=== PATIENT | male | born 1980 | race Caucasian/White ===

== ENCOUNTER → 2020-07-15 | Outpatient (CLI) | payer OTHER ==
[~2020-07-15] MED LIST: IOPAMIDOL 370 MG/ML 200 ML INFUS..BTL INJ ONE; SODIUM CHLORIDE 0.9% 50ML 50 ML ONE
--- NOTE | 2020-07-15 18:07 | Diagnostic Imaging Report ---
EXAM: CT Chest WITH contrast 07/15/2020 5:10 PM INDICATION: CONTUSION FRONT WALL THORAX COMPARISON: None TECHNIQUE: Chest was scanned utilizing a multidetector helical scanner from the lung apex through the level of the adrenal glands with administration of IV contrast. Coronal and sagittal reformations were obtained. Routine protocol was performed. IV CONTRAST: 100 mL of Omnipaque 300 COMPLICATIONS: None RADIATION DOSE: Total DLP: 594.13 mGy*cm Estimated effective dose: (DLP x 0.014 x size factor) mSv CTDIvol has been reviewed. It is below the limits set by the Radiation Protocol Committee (RPC). Dose modulation, iterative reconstruction, and/or weight based adjustment of the mA/kV was utilized to reduce the radiation dose to as low as reasonably achievable. FINDINGS: LINES/ TUBES: None. LUNGS AND AIRWAYS: The lungs are unremarkable. No evidence of pulmonary contusion. Airways are normal. PLEURA: The pleural spaces are clear. Vascular: The pulmonary arteries have normal enhancement with no filling defects. The pulmonary trunk has normal caliber measuring 2.9 cm. The ascending and descending colon have normal enhancement and caliber measuring 3.5 cm and 2.4 cm, respectively. HEART AND MEDIASTINUM: The thyroid gland is normal. No mediastinal, hilar or axillary lymphadenopathy. The heart is normal in size. There is no pericardial effusion. UPPER ABDOMEN: Subcentimeter hypodense lesion in the right hepatic dome (series 2 image 94) is too small to characterize by CT but most likely represents a small cyst. The remainder of the imaged upper abdomen is unremarkable. BONES: There is a healing fracture of the right anterolateral sixth rib (series 2 image 83). The visualized bony thorax is otherwise within normal limits. SOFT TISSUES: Unremarkable. IMPRESSION: 1. Subacute healing fracture of the right sixth anterolateral rib. 2. No pulmonary contusion. No acute intrathoracic abdomen was identified. Signed by: Etienne Simental MD on 07/15/2020 6:03 PM
== END ==
LOC: CT 16:49
PROVIDERS: ATTEND Family Medicine
DX: S20.211A Contusion of right front wall of thorax, initial encounter (principal); S23.41XA Sprain of ribs, initial encounter
CPT/HCPCS: 71260; Q9967